=== PATIENT | female | born 1940 | race Caucasian/White ===

== ENCOUNTER 2016-03-29 15:45 | Emergency (ER) | payer OTHER ==
[~2016-03-29] VITALS: Ht 165.1 cm; Wt 72.0 kg
[2016-03-29 15:45] VITALS: BP 169/77; PULSE 92; RESP 16; TEMP 98; O2SAT 96
[~2016-03-29 15:45] MED LIST: ASPI81TA82 PO; BACT2OIN TOP; CRES20TA PO; DOXY100T PO; ENAL20TA PO; FLUO20CA3 PO; GABA600T PO; HYDR-3129 PO; ISOS20TA38 PO; METO50TA PO; PLAV75TA PO; RANI150 PO; STOO100T; XANA1TAB6 PO
[2016-03-29 16:28] LABS: AUTOMATED NEUTROPHIL # 9.7 TH/MM3 (1.8-7.7); BASOPHIL % 0.2 % (0.0-2.0); HEMATOCRIT 43.6 % (35.0-46.0); HEMO FLAGS DIFF FINAL; LYMPH % 10.1 % (9.0-44.0); LYMPHOCYTE # 1.1 TH/MM3 (1.0-4.8); MEAN CELL VOLUME 92.8 FL (80.0-100.0); MEAN CORPUSCULAR HEMOGLOBIN 30.9 PG (27.0-34.0); MEAN CORPUSCULAR HGB CONC 33.3 % (32.0-36.0); MONO % 4.4 % (0.0-8.0); NEUT % 85.3 % (16.0-70.0); PLATELET COUNT 284 TH/MM3 (150-450); RED CELL DISTRIBUTION WIDTH 14.5 % (11.6-17.2); WHITE BLOOD COUNT 11.4 TH/MM3 (4.0-11.0)
[2016-03-29 17:35] LABS: ALKALINE PHOSPHATASE 130 U/L (45-117); ALT (GPT) 40 U/L (10-53); ANION GAP 10 MEQ/L (5-15); AST (GOT) 24 U/L (15-37); BICARBONATE 25.4 MEQ/L (21.0-32.0); BLOOD UREA NITROGEN 58 MG/DL (7-18); CHLORIDE 103 MEQ/L (98-107); GLOMERULAR FILTRATION RATE 25 ML/MIN (>89); POTASSIUM 4.5 MEQ/L (3.5-5.1); SODIUM (NA) 138 MEQ/L (136-145); TOTAL BILIRUBIN ADULT 0.2 MG/DL (0.2-1.0)
[2016-03-29] MEDS ORDERED: OMEP20TA PO (17:42)
[2016-03-29] MEDS ORDERED: ESCI20TA PO (17:42)
[2016-03-29] MEDS ORDERED: CLON0.2T PO (17:42)
[2016-03-29] MEDS ORDERED: ALPR1TAB3 PO (17:42)
[2016-03-29] MEDS ORDERED: LOSA50TA PO (17:42)
[2016-03-29] MEDS ORDERED: GABA600T PO (17:42)
[2016-03-29] MEDS ORDERED: ISOS10TA3 PO (17:42)
[2016-03-29] MEDS ORDERED: HYDR-3366 PO (17:42)
[2016-03-29] MEDS ORDERED: CLOP75TA PO (17:42)
[2016-03-29] MEDS ORDERED: MUPI2OIN TOPICAL (17:42)
[2016-03-29] MEDS ORDERED: ALPH1CAP3 PO (17:42)
[2016-03-29] MEDS ORDERED: ZOCO20TA PO (17:42)
[2016-03-29] MEDS ORDERED: BUPR75TA PO (17:42)
[2016-03-29] MEDS ORDERED: ROSU1TAB8 PO (17:42)
[2016-03-29] MEDS ORDERED: METO25TA3 PO (17:42)
--- NOTE | 2016-03-29 17:42 | PD ---
HPI Chief Complaint: Psychiatric Symptoms Time Seen by Provider: 16:35 Travel History International Travel<30 days: No Contact w/Intl Traveler<30days: No Traveled to known affect area: No History of Present Illness HPI 76-year-old female who is under Peterson act by report is very upset with her current life situation and doesn't want to live like this anymore. She denies other specific complaints and is tearful and hard to get additional history from [facility] Past Medical History Cancer: No Cardiovascular Problems: Yes (HX IRREGULAR HEARTRATE) Diabetes: No Endocrine: Yes Genitourinary: No Hepatitis: No Hiatal Hernia: No Immune Disorder: No Musculoskeletal: Yes (ARTHRITIS- HX LUMBAR LAMINECTOMY WITH RODS) Neurologic: Yes (NEUROPATHY VIJAYA FEET) Psychiatric: Yes (DEPRESSION, ANXIETY) Reproductive: No Respiratory: Yes (LUNG MASS; PT NOT SURE OF COPD) Thyroid Disease: Yes (NODULES) Past Surgical History Abdominal Surgery: Yes (APPENDECTOMY) AICD: No Body Medical Devices: 4 RODS - BACK; 2 CARDIAC STENTS Cardiac Surgery: Yes (HEART CATH WITH 2 STENTS) Ear Surgery: No Endocrine Surgery: No Eye Surgery: No Genitourinary Surgery: No Gynecologic Surgery: No Joint Replacement: No Oral Surgery: No Pacemaker: No Thoracic Surgery: No Social History Tobacco Use: No Allergies-Medications (Allergen,Severity, Reaction): Coded Allergies: No Known Allergies (Unverified , 04/30/13) Reported Meds & Prescriptions Reported Meds & Active Scripts Active Reported Mupirocin Topical (Mupirocin) 2 % Oint 1 Applic TOPICAL BID Rosuvastatin (Rosuvastatin Calcium) 20 Mg Tab 20 Mg PO DAILY Mcgraws (Hydrocodone-Acetaminophen) 10-325 Mg Tab 1 Tab PO Q8 PRN Losartan (Losartan Potassium) 50 Mg Tab 50 Mg PO DAILY Clonidine (Clonidine HCl) 0.2 Mg Tab 0.2 Mg PO DAILY Omeprazole 20 Mg Tab 20 Mg PO DAILY Zocor (Simvastatin) 20 Mg Tab 20 Mg PO DAILY Metoprolol Tartrate 25 Mg Tab 12.5 Mg PO BID Isosorbide Mononitrate 10 Mg Tab 10 Mg PO BID Take 2 doses 7 hours apart. Alpha Lipoic Acid Extra Strength (Alpha-Lipoic Acid) 600 Mg Cap 300 Mg PO BID Gabapentin 600 Mg Tab 600 Mg PO DAILY Clopidogrel (Clopidogrel Bisulfate) 75 Mg Tab 75 Mg PO DAILY Alprazolam 1 Mg Tab 1 Mg PO TID Escitalopram (Escitalopram Oxalate) 20 Mg Tab 20 Mg PO DAILY Bupropion HCl 75 Mg Tab 75 Mg PO BID Review of Systems ROS Limitations: Poor Historian Physical Exam Exam Limitations: Poor Historian Narrative GENERAL: Well-nourished, well-developed patient. SKIN: Warm and dry. HEAD: Normocephalic and atraumatic. EYES: No injection or drainage. ENT: No nasal drainage noted. NECK: Supple, trachea midline. CARDIOVASCULAR: Regular rate and rhythm RESPIRATORY: No increased effort. No accessory muscle use NEUROLOGICAL: Awake and alert. Motor and sensory grossly within normal limits. Normal speech. Steady gait Data Data Last Documented VS Vital Signs Date Time Temp Pulse Resp B/P Pulse Ox O2 Delivery O2 Flow Rate FiO2 03/29/16 15:45 98.0 92 16 169/77 96 Orders Complete Blood Count With Diff (03/29/16 16:04) Comprehensive Metabolic Panel (03/29/16 16:04) Drug Screen, Random Urine (03/29/16 16:04) Alcohol (Ethanol) (03/29/16 16:04) Psych Screen (03/29/16 16:04) Urinalysis - C+S If Indicated (03/29/16 17:21) Chest, Single Ap (03/29/16 ) Sodium Chlor 0.9% 1000 Ml Inj (Ns 1000 M (03/29/16 18:15) Labs Laboratory Tests Test 03/29/16 16:00 White Blood Count 11.4 TH/MM3 Red Blood Count 4.70 MIL/MM3 Hemoglobin 14.5 GM/DL Hematocrit 43.6 % Mean Corpuscular Volume 92.8 FL Mean Corpuscular Hemoglobin 30.9 PG Mean Corpuscular Hemoglobin 33.3 % Concent Red Cell Distribution Width 14.5 % Platelet Count 284 TH/MM3 Mean Platelet Volume 8.2 FL Neutrophils (%) (Auto) 85.3 % Lymphocytes (%) (Auto) 10.1 % Monocytes (%) (Auto) 4.4 % Eosinophils (%) (Auto) 0.0 % Basophils (%) (Auto) 0.2 % Neutrophils # (Auto) 9.7 TH/MM3 Lymphocytes # (Auto) 1.1 TH/MM3 Monocytes # (Auto) 0.5 TH/MM3 Eosinophils # (Auto) 0.0 TH/MM3 Basophils # (Auto) 0.0 TH/MM3 CBC Comment DIFF FINAL Differential Comment Sodium Level 138 MEQ/L Potassium Level 4.5 MEQ/L Chloride Level 103 MEQ/L Carbon Dioxide Level 25.4 MEQ/L Anion Gap 10 MEQ/L Blood Urea Nitrogen 58 MG/DL Creatinine 1.92 MG/DL Estimat Glomerular Filtration 25 ML/MIN Rate Random Glucose 117 MG/DL Calcium Level 9.0 MG/DL Total Bilirubin 0.2 MG/DL Aspartate Amino Transf 24 U/L (AST/SGOT) Alanine Aminotransferase 40 U/L (ALT/SGPT) Alkaline Phosphatase 130 U/L Total Protein 7.0 GM/DL Albumin 3.3 GM/DL Ethyl Alcohol Level LESS THAN 3 MG/DL MDM Medical Decision Making Medical Screen Exam Complete: Yes Emergency Medical Condition: Yes Medical Record Reviewed: Yes (pmh confirmed) Differential Diagnosis depression, uti, electrolyte.... Narrative Course Will check blood work, urinalysis for medical clearance and reevaluate Physician Communication Physician Communication eva to follow workup and reassess, given transfer report Avis Cobb MD Mar 29, 2016 17:42
[2016-03-29] MEDS ORDERED: SODIUM CHLOR 0.9% 1000 ML INJ 1,000 ML IV ONE (18:15)
--- NOTE | 2016-03-29 18:26 | RADRPT ---
EXAM DATE/TIME: 03/29/2016 18:05 [facility] COMPARISON: CHEST SINGLE AP, April 30, 2013, 14:01. INDICATIONS : Cough. MEDICAL HISTORY : None. Cancer, unspecified SURGICAL HISTORY : Fusion, lumbar. ENCOUNTER: Initial ACUITY: 4 - 6 days PAIN SCORE: 0/10 LOCATION: Bilateral chest FINDINGS: A single view of the chest demonstrates the lungs to be symmetrically aerated without evidence of mas s, infiltrate or effusion. Right Mediport catheter with tip in the SVC. The cardiomediastinal contour s are unremarkable. Osseous structures are intact. CONCLUSION: No acute disease. Cedrick Velázquez MD on March 29, 2016 at 18:23 Board Certified Radiologist. This report was verified electronically.
--- NOTE | 2016-03-29 18:33 | PD ---
Physical Exam Time Seen by Provider: 18:27 Narrative Patient was initially seen and evaluated by Dr. Cobb. See her note for initial assessment and evaluation. Patient was brought in under Peterson act after stating that she wanted to while she was on the phone with a [employer] agent. She denies suicidal ideation. She does state that she just wants to . She doesn't want to kill herself. She denies homicidal ideation. Denies visual or auditory hallucinations. Denies drug use, alcohol use, tobacco use. 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 History of hypertension. Dr. Marquis is primary care provider. Has no medical complaints at this time. She denies fever, chills, nausea, vomiting. Denies chest pain, shortness of breath, abdominal pain, change in stool or urine. She says she is upset about her life situation right now and her granddaughter told her that she could not see her twin great-grandchildren and that tore her apart, and that is why she was stated that she wanted to . No other modifying factors or associated signs or symptoms. Data Data Last Documented VS Vital Signs Date Time Temp Pulse Resp B/P Pulse Ox O2 Delivery O2 Flow Rate FiO2 03/29/16 19:31 18 03/29/16 15:45 98.0 92 169/77 96 Orders Complete Blood Count With Diff (03/29/16 16:04) Comprehensive Metabolic Panel (03/29/16 16:04) Drug Screen, Random Urine (03/29/16 16:04) Alcohol (Ethanol) (03/29/16 16:04) Psych Screen (03/29/16 16:04) Urinalysis - C+S If Indicated (03/29/16 17:21) Chest, Single Ap (03/29/16 ) Sodium Chlor 0.9% 1000 Ml Inj (Ns 1000 M (03/29/16 18:15) Diet Regular Basic (03/30/16 Breakfast) Urine Culture (03/29/16 20:00) Ceftriaxone Inj (Rocephin Inj) (03/29/16 21:00) Prednisone (Deltasone) (03/29/16 21:00) Albuterol Neb (Albuterol Neb) (03/29/16 21:00) Labs Laboratory Tests Test 03/29/16 03/29/16 16:00 20:00 White Blood Count 11.4 TH/MM3 Red Blood Count 4.70 MIL/MM3 Hemoglobin 14.5 GM/DL Hematocrit 43.6 % Mean Corpuscular Volume 92.8 FL Mean Corpuscular Hemoglobin 30.9 PG Mean Corpuscular Hemoglobin 33.3 % Concent Red Cell Distribution Width 14.5 % Platelet Count 284 TH/MM3 Mean Platelet Volume 8.2 FL Neutrophils (%) (Auto) 85.3 % Lymphocytes (%) (Auto) 10.1 % Monocytes (%) (Auto) 4.4 % Eosinophils (%) (Auto) 0.0 % Basophils (%) (Auto) 0.2 % Neutrophils # (Auto) 9.7 TH/MM3 Lymphocytes # (Auto) 1.1 TH/MM3 Monocytes # (Auto) 0.5 TH/MM3 Eosinophils # (Auto) 0.0 TH/MM3 Basophils # (Auto) 0.0 TH/MM3 CBC Comment DIFF FINAL Differential Comment Sodium Level 138 MEQ/L Potassium Level 4.5 MEQ/L Chloride Level 103 MEQ/L Carbon Dioxide Level 25.4 MEQ/L Anion Gap 10 MEQ/L Blood Urea Nitrogen 58 MG/DL Creatinine 1.92 MG/DL Estimat Glomerular Filtration 25 ML/MIN Rate Random Glucose 117 MG/DL Calcium Level 9.0 MG/DL Total Bilirubin 0.2 MG/DL Aspartate Amino Transf 24 U/L (AST/SGOT) Alanine Aminotransferase 40 U/L (ALT/SGPT) Alkaline Phosphatase 130 U/L Total Protein 7.0 GM/DL Albumin 3.3 GM/DL Ethyl Alcohol Level LESS THAN 3 MG/DL Urine Color YELLOW Urine Turbidity CLEAR Urine pH 5.0 Urine Specific [place] 1.016 Urine Protein NEG mg/dL Urine Glucose (UA) NEG mg/dL Urine Ketones NEG mg/dL Urine Occult Blood NEG Urine Nitrite NEG Urine Bilirubin NEG Urine Urobilinogen LESS THAN 2.0 MG/DL Urine Leukocyte Esterase LARGE Urine WBC 44 /hpf Urine Squamous Epithelial 1 /hpf Cells Urine Bacteria OCC /hpf Microscopic Urinalysis Comment CULTURE INDICATED Urine Opiates Screen NEG Urine Barbiturates Screen NEG Urine Amphetamines Screen NEG Urine Benzodiazepines Screen POS Urine Cocaine Screen NEG Urine Cannabinoids Screen NEG MDM Medical Record Reviewed: Yes Supervised Visit with SUE: Yes Narrative Course 76-year-old presents under Peterson act. She was initially evaluated by Dr. Cobb and she ordered labs and psych evaluation. Dr. Cobb also ordered IV fluid bolus and UA for elevated BUN and creatinine. Patient denies suicidal ideation although she states she does want to . 1837: Chest x-ray concludes No acute disease. 2158: Urinalysis is signs of infection. Rocephin IV ordered. The patient's nurse called and said the patient has developed onset of cough. I reevaluated the patient and patient says she's been sick with a cough for about 2 weeks and shes uses albuterol breathing treatments at home. Albuterol nebulizer ordered. She also says that today's her last day of steroids and she needs her dose of steroids. Deltasone 40 mg ordered. Lung sounds are clear and equal bilaterally. Frequent moist cough noted. Patient is medically cleared for psychiatric evaluation. Diagnosis Primary Impression: Medical clearance for psychiatric admission Condition: Stable Radha Givens Mar 29, 2016 18:33
[2016-03-29 20:24] LABS: BACTERIA, URINE OCC /hpf; BLOOD, URINE NEG (NEG); COMMENT (UR) CULTURE INDICATED; CULTURE IF INDICATED CULTURE INDICATED; GLUCOSE,URINE NEG (NEG); KETONE, URINE NEG (NEG); NITRITE,URINE NEG (NEG); SQUAMOUS EPITHELIAL CELL URINE 1 /hpf (0-5); URINE COLOR YELLOW (YELLW/STRAW)
[2016-03-29 20:28] LABS: AMPHETAMINE, URINE NEG (NEG); BARBITURATES, URINE NEG (NEG); COCAINE, URINE NEG (NEG)
[2016-03-29 20:30] VITALS: BP 154/67; PULSE 90; RESP 18; O2SAT 95
[2016-03-29] MEDS ORDERED: RESP: ALBUTEROL 2.5 MG/3 ML NEB (SCH) INH ONE (21:00)
[2016-03-29] MEDS ORDERED: predniSONE 20 MG TAB PO ONE (21:00)
[2016-03-29] MEDS ORDERED: cefTRIAXone INJ 1,000 MG in SODIUM CHLORIDE 0.9% INJ 100 ML IV ONE (21:00)
[2016-03-30 00:46] VITALS: BP 164/67; PULSE 72; RESP 16; TEMP 98.4; O2SAT 98
[2016-03-30 06:20] VITALS: BP 157/54; PULSE 78; RESP 16; TEMP 98.2; O2SAT 99
[2016-03-30 09:31] VITALS: BP 128/74; PULSE 87; RESP 15; O2SAT 97
== END 2016-03-30 10:49 | disposition home or self-care (01) ==
LOC: NEDAMB 15:45 → NEPE 03-30 10:49
DX: Z04.6 Encounter for general psychiatric examination, requested by authority (principal); N39.0 Urinary tract infection, site not specified; B96.89 Other specified bacterial agents as the cause of diseases classified elsewhere; F41.8 Other specified anxiety disorders; I10 Essential (primary) hypertension; R91.8 Other nonspecific abnormal finding of lung field
CPT/HCPCS: 71010; 80053; 80307; 80320; 81001; 85025; 87086; 94664; 96361; 96365; 99284; J0696; J7030; J7512; J7613